=== PATIENT | female | born 1965 | race Caucasian/White ===

== ENCOUNTER 2017-08-28 08:58 | Day surgery (SDC) | payer OTHER ==
[2017-08-28] MEDS ORDERED: LR 1,000 ML IV ONE (09:03)
[2017-08-28] MEDS ORDERED: LIDOCAINE 1% 2 ML INJ ID PRN (09:03)
[2017-08-28 09:46] VITALS: PULSE 81
[2017-08-28] MEDS ORDERED: fentaNYL 100 MCG/2 ML INJ IVP PRN (11:09)
[2017-08-28] MEDS ORDERED: NALOXONE HCL 0.4 MG/ML INJ IVP PRN (11:09)
--- NOTE | 2017-08-28 11:09 | PDANEPAE ---
ANE Past Medical History - Cardiovascular History Hx Hypertension: No Hx Arrhythmias: No Hx Chest Pain: No Hx Coronary Artery / Peripheral Vascular Disease: No Hx CHF / Valvular Disease: No Hx Palpitations: No - Pulmonary History Hx COPD: No Hx Asthma/Reactive Airway Disease: No Hx Recent Upper Respiratory Infection: No Hx Oxygen in Use at Home: No Hx Sleep Apnea: No Sleep Apnea Screening Result - Last Documented: Negative - Neurologic History Hx Cerebrovascular Accident: No Hx Seizures: No Hx Dementia: No - Endocrine History Hx Diabetes: No - Renal History Hx Renal Disorders: No - Liver History Hx Hepatic Disorders: No - Neurological & Psychiatric Hx Hx Neurological and Psychiatric Disorders: No - Cancer History Hx Cancer: Yes Cancer History Comment: COLORECTAL DX 08/2016 DX - Congenital Disorder History Hx Congenital Disorders: No - GI History Hx Gastrointestinal Disorders: No - Other Health History Other Health History: NEG - Chronic Pain History Chronic Pain: No - Surgical History Prior Surgeries: COLONOSCOPY. C SECTION ANE Review of Systems Review of Systems: - Exercise capacity METS (RN): 5 METS ANE Patient History - Allergies Allergies/Adverse Reactions: sulfamethoxazole [From Bactrim] Allergy (Verified 08/27/17 17:42) Rash trimethoprim [From Bactrim] Allergy (Verified 08/27/17 17:42) Rash - Home Medications Home Medications: Trazodone HCl 08/27/17 [Last Taken 08/27/17] Viibryd 08/27/17 [Last Taken 08/27/17] Vyvanse 08/27/17 [Last Taken 08/28/17 07:15] - NPO status NPO Since - Liquids (Date): 08/27/17 NPO Since - Liquids (Time): 10:15 NPO Since - Solids (Date): 08/27/17 NPO Since - Solids (Time): 20:30 - Smoking Hx Smoking Status: Former smoker ANE Labs/Vital Signs - Vital Signs Blood Pressure: 121/82 Heart Rate: 81 Respiratory Rate: 16 O2 Sat (%): 98 Height: 177.8 cm Weight: 60.328 kg ANE Physical Exam - Airway Neck exam: FROM Mallampati Score: Class 1 Mouth exam: normal dental/mouth exam - Pulmonary Pulmonary: no respiratory distress, no rales or rhonchi - Cardiovascular Cardiovascular: regular rate and rhythym, no murmur, rub, or gallop - ASA Status ASA Status: II ANE Anesthesia Plan Anesthesia Plan: GA with mask
[2017-08-28] MEDS ORDERED: PROPOFOL/EMULSION 500 MG/50 ML BOTTLE IV ONE (11:10)
[2017-08-28] MEDS ORDERED: LIDOCAINE 2% 5 ML SDV ONE (11:10)
--- NOTE | 2017-08-28 11:14 | PDGENHP ---
History & Physical Chief Complaint: rectal cancer History of Present Illness: 52 year old female for rectal cancer Pertinent Past, Social, Family History: PMhx: rectal cancer. FamHx: No CRC Relevant Physical Exam: HEENT: Anicteric. CV: RRR +s1s2. Lungs: CTAB. Abd: soft, nt, + bs Cardiorespiratory Assessment: ASA 2
--- NOTE | 2017-08-28 11:52 | POSTANESTH ---
Post Anesthetic Evaluation Cardiovascular Status: Normal, Stable Respiratory Status: Normal, Stable Level of Consciousness/Mental Status: Can Participate in Eval Pain Control: Adequate, Prn Tx Ordered Nausea/Vomiting Control: Adequate, Prn Tx Ordered Complications Possibly Related to Anesthesia: None Noted
--- NOTE | 2017-08-28 12:04 | GIREPORT ---
[facility] - Endoscopy Department Patient Name: Mary Russo Procedure Date: 08/28/2017 11:04 AM Patient Type: Outpatient Attending MD/ ER Physician: Blue Solano MD Procedure: Lower EUS Indications: Pre-treatment staging for anorectal carcinoma Patient Profile: 52 year old female presents for staging of a rectal cancer. Providers: Blue Solano MD Medicines: Monitored Anesthesia Care Complications: No immediate complications. Estimated blood loss: Minimal. Description of Procedure: After obtaining informed consent, the endoscope was passed under direct vision. Throughout the procedure, the patient's blood pressure, pulse, and oxygen saturations were monitored continuously. The Endosonoscope was introduced through the anus and advanced to the sigmoid colon. The Colonoscope was introduced through the anus and advanced to the sigmoid colon for ultrasound. The lower EUS was accomplished without difficulty . The patient tolerated the procedure well. The quality of the bowel preparat ion was good. Findings: The perianal and digital rectal examinations were normal. Pertinent negatives include no palpable rectal lesions. Endoscopic Finding : A fungating, infiltrative and ulcerated non-obstructing medium-sized ma ss was found in the proximal rectum. The mass measured three cm in length. Endosonographic Finding : A hypoechoic mass was found in the rectum. The mass was encountered at 11.0 cm (from the anal verge). The endosonographic borders were poorly-defin ed. The mass measured 10 mm (in maximum thickness). A round, hypoechoic les ion was seen at the level of the tumor. It measured about 1cm. Not amenable to FNA since at the level of the tumor. Suspected to be involved. Estimated Blood Loss: Estimated blood loss was minimal. Post Op Diagnosis: - Malignant tumor in the proximal rectum. - Rectal mass was visualized endosonographically. This was staged uT3 u N1. - No specimens collected. Recommendation: - Discharge patient to home (with escort). - Advance diet as tolerated. - Continue present medications. - Thank you for allowing me to particpate in the care of your patient. Attending Participation: I personally performed the entire procedure. Blue Solano MD Blue Solano MD 08/28/2017 12:04:35 PM This report has been signed electronicallyBlue Solano MD Number of Addenda: 0 Note Initiated On: 08/28/2017 11:04 AM Total Procedure Duration Time 0 hours 16 minutes 24 seconds [email or web address]
[2017-08-28 12:15] VITALS: TEMP 97.7
[2017-08-28 12:28] VITALS: RESP 16
[2017-08-28 12:45] VITALS: BP 135/87; O2SAT 97
== END 2017-08-28 12:45 | disposition home or self-care (01) ==
LOC: FSGY 08:58
PROVIDERS: ATTEND Internal Medicine Gastroenterology
PROC: 0DJD8ZZ Inspection of Lower Intestinal Tract, Via Natural or Artificial Opening Endoscopic (ICD-10-PCS; principal; 2017-08-28 11:00)
PROC: BW41ZZZ Ultrasonography of Abdomen and Pelvis (ICD-10-PCS; principal; 2017-08-28 11:00)
DX: C20 Malignant neoplasm of rectum (principal)
CPT/HCPCS: J2704

== ENCOUNTER → 2017-09-10 | Outpatient (CLI) | payer OTHER ==
[~2017-09-10] MED LIST: GADOBUTROL 10 ML VIAL IVP ONE
== END ==
LOC: FIMAGING 06:53
PROVIDERS: ATTEND Internal Medicine Hematology & Oncology
DX: Z01.818 Encounter for other preprocedural examination (principal); G93.0 Cerebral cysts
CPT/HCPCS: A9585

== ENCOUNTER → 2017-12-10 | Outpatient (CLI) | payer OTHER | LOC: FIMAGING 13:24 | PROVIDERS: ATTEND Obstetrics & Gynecology | DX: Z12.31 Encounter for screening mammogram for malignant neoplasm of breast (principal); Z80.3 Family history of malignant neoplasm of breast ==

== ENCOUNTER → 2017-12-21 | Outpatient (CLI) | payer OTHER | LOC: FIMAGING 12:57 | PROVIDERS: ATTEND Internal Medicine Hematology & Oncology | DX: Z13.820 Encounter for screening for osteoporosis (principal); M85.89 Other specified disorders of bone density and structure, multiple sites; Z78.0 Asymptomatic menopausal state ==

== ENCOUNTER 2018-05-15 18:35 | Inpatient (IN) | payer OTHER ==
--- NOTE | 2018-05-15 18:57 | EDPHY ---
H & P Stated Complaint: Pt having diffuse abdo pn x 4hrs, denies N/V/D. Hx colon CA Time Seen by Provider: 05/15/18 18:57 HPI/ROS: HPI CHIEF COMPLAINT: Abdominal pain, abdominal bloating, nausea HISTORY OF PRESENT ILLNESS: This is a very pleasant 53-year-old female, she has a history of colorectal cancer and had surgery for this at [facility] in December, she is on oral chemotherapy by Dr. Reeves, however currently is not on it. She presents emergency room with abdominal bloating, nausea and abdominal discomfort. Discomfort was getting worse. This started around 2:00 p.m.. Rather persistent. No vomiting. She had a bowel movement earlier this morning without difficulty. No fever. Denies chest pain or shortness of breath. Pain is worse. Lower abdomen. Decided come the emergency room for this. Past Medical History: Colorectal cancer Past Surgical History: Colorectal cancer status post surgery Social History: He denies drugs alcohol tobacco. Family History: Noncontributory. ROS REVIEW OF SYSTEMS: 10 Systems were reviewed and negative with the exception of the elements mentioned in the history of present illness. Exam Constitutional triage nursing summary reviewed, vital signs reviewed, awake/ alert. Eyes normal conjunctivae and sclera, EOMI, PERRLA. HENT normal inspection, atraumatic, moist mucus membranes, no epistaxis, neck supple/ no meningismus, no raccoon eyes. Respiratory clear to auscultation bilaterally, normal breath sounds, no respiratory distress, no wheezing. Cardiovascular rate normal, regular rhythm, no murmur, no edema, distal pulses normal. Gastrointestinal soft, non-tender, no rebound, no guarding, normal bowel sounds, no distension, no pulsatile mass. Genitourinary no CVA tenderness. Musculoskeletal no midline vertebral tenderness, full range of motion, no calf swelling, no tenderness of extremities, no meningismus, good pulses, neurovascularly intact. Skin pink, warm, & dry, no rash, skin atraumatic. Neurologic awake, alert and oriented x 3, AAOx3, moves all 4 extremities equally, motor intact, sensory intact, CN II-XII intact, normal cerebellar, normal vision, normal speech. Psychiatric normal mood/affect. Heme/Lymph/Immune no lymphadenopathy. Differential Diagnosis: Includes but is not limited to in a particular order: Bowel obstruction, ileus, hernia Medical Decision Making: Plan for this patient IV establishment IV fluid bolus , check basic blood work, CT scan abdomen pelvis with IV contrast rule out bowel obstruction. Re-evaluation: ED x-ray KUB: No evidence of free fluid or free air. Patient CT scan abdomen pelvis with IV contrast shows small bowel obstruction. Her stomach is dilated with fluid filled stomach. And dilated fluid-filled small bowel loops with a transition point in the lower abdomen pelvis region. This was called to me by Dr. Sadiq Yao. Plan for surgical consultation. Additionally plan for NG tube. 2100: Consulted Dr. Lei. NG tube placed. General surgery consult. Patient admitted to Dr. Lei for SBO. seening and evaluating patient. Source: Patient - Personal History Current Tetanus/Diphtheria Vaccine: Unsure - Medical/Surgical History Hx Asthma: No Hx Chronic Respiratory Disease: No Hx Diabetes: No Hx Cardiac Disease: No Hx Renal Disease: No Hx Cirrhosis: No Hx Alcoholism: No Hx HIV/AIDS: No Hx Splenectomy or Spleen Trauma: No Other PMH: Colon CA Sx, - Social History Smoking Status: Former smoker Constitutional: Initial Vital Signs Heart Rate 72 05/15/18 18:47 Respiratory Rate 16 05/15/18 18:47 Blood Pressure 112/91 H 05/15/18 18:47 O2 Sat (%) 100 05/15/18 18:47 O2 Delivery Mode Nasal Cannula O2 (L/minute) 2 Allergies/Adverse Reactions: sulfamethoxazole [From Bactrim] Allergy (Verified 05/15/18 18:47) Rash trimethoprim [From Bactrim] Allergy (Verified 05/15/18 18:47) Rash Home Medications: Medication Instructions Recorded Lisdexamfetamine Dimesylate 20 mg PO DAILY 08/27/17 [Vyvanse] Vilazodone HCl [Viibryd] 20 mg PO DAILY 08/27/17 traZODone [traZODONE 50MG (*)] 75 mg PO HS 08/27/17 Estradiol [Vivelle-Dot 0.1MG (*)] 0.1 mg TD TUFR@0800 05/15/18 Herbals/Supplements -Info Only 1 ea PO DAILY 05/15/18 Progesterone, Micronized 200 mg PO HS 05/15/18 [Progesterone] QUEtiapine FUMARATE [Seroquel 50 25 mg PO HS 05/15/18 mg (*)] Medical Decision Making - Data Points Laboratory Results: Laboratory Results 05/15/18 19:00 05/15/18 19:00 Medications Given: Enoxaparin Sodium (Lovenox) 40 mg SC DAILY [facility] Stop: 11/12/18 08:59 Last Admin: 05/16/18 10:15 Dose: 40 mg Hydromorphone HCl (Dilaudid) 0.2 - 0.4 mg IVP Q1HR PRN PRN Reason: Pain, Breakthrough Stop: 05/25/18 23:09 Last Admin: 05/16/18 02:53 Dose: 0.4 mg Potassium Chloride 10 meq/ (Dextrose/Sodium Chloride) 1,000 mls @ 100 mls/hr IV CONT [facility] Stop: 11/12/18 13:59 Last Admin: 05/16/18 15:26 Dose: 1,000 mls Ketorolac Tromethamine (Toradol) 15 mg IVP Q6H [facility] Stop: 05/21/18 04:59 Last Admin: 05/16/18 18:51 Dose: Not Given Lorazepam (Ativan Injection) 0.5 - 1 mg IVP Q4HRS PRN PRN Reason: Anxiety, Unable to Take PO Stop: 11/12/18 06:37 Last Admin: 05/16/18 10:28 Dose: 0.5 mg Ondansetron HCl (Zofran) 4 mg IVP Q4HRS PRN PRN Reason: *Nausea &/or Vomiting Stop: 05/16/18 23:09 Last Admin: 05/16/18 02:54 Dose: 4 mg Pantoprazole Sodium (Protonix) 40 mg IVP DAILY [facility] Stop: 11/11/18 23:29 Last Admin: 05/16/18 10:18 Dose: 40 mg Discontinued Medications Diazepam (Valium) 5 mg IVP ONCE ONE Stop: 05/16/18 00:31 Last Admin: 05/16/18 00:29 Dose: 5 mg Hydromorphone HCl (Dilaudid) 0.5 mg IVP EDNOW ONE Stop: 05/15/18 19:05 Last Admin: 05/15/18 19:14 Dose: 0.5 mg Hydromorphone HCl (Dilaudid) 0.5 mg IVP EDNOW ONE Stop: 05/15/18 20:26 Last Admin: 05/15/18 20:38 Dose: 0.5 mg Sodium Chloride (Ns) 1,000 mls @ 0 mls/hr IV EDNOW ONE; Wide Open PRN Reason: Protocol Stop: 05/15/18 19:05 Last Admin: 05/15/18 19:13 Dose: 1,000 mls Sodium Chloride (Ns) 1,000 mls @ 0 mls/hr IV ONCE ONE PRN Reason: Wide Open Stop: 05/15/18 23:08 Last Admin: 05/15/18 23:10 Dose: 1,000 mls Sodium Chloride (Ns) 1,000 mls @ 100 mls/hr IV CONT [facility] Stop: 11/11/18 23:29 Last Admin: 05/16/18 10:35 Dose: 1,000 mls Ketorolac Tromethamine (Toradol) 15 mg IVP EDNOW ONE Stop: 05/15/18 23:01 Last Admin: 05/15/18 23:03 Dose: 15 mg Ondansetron HCl (Zofran) 4 mg IVP EDNOW ONE Stop: 05/15/18 19:05 Last Admin: 05/15/18 19:14 Dose: 4 mg Promethazine HCl (Phenergan) 6.25 mg IVP ONCE ONE Stop: 05/15/18 21:44 Last Admin: 05/15/18 21:45 Dose: 6.25 mg Departure - Departure Disposition: [facility] Inpatient Acute Clinical Impression: SBO (small bowel obstruction) Condition: Fair
[2018-05-15] MEDS ORDERED: ONDANSETRON 4 MG/2 ML VIAL IVP ONE (19:04)
[2018-05-15] MEDS ORDERED: HYDROmorphONE/DILAUDID 2 MG/ML INJ IVP ONE ×2 (19:04→20:25)
[2018-05-15] MEDS ORDERED: NS 1,000 ML IV ONE ×2 (19:04→23:07)
[2018-05-15] MEDS ORDERED: IOPAMIDOL (ISOVUE-300) 100 ML BTL ONE (19:13)
[2018-05-15 19:14] LABS: PLATELET COUNT 386 10^3/uL (150-400)
[2018-05-15 19:23] LABS: INR 0.97 (0.83-1.16); PROTIME(PATIENT) 13.1 SEC (12.0-15.0)
[2018-05-15] MEDS ORDERED: BENZOCAINE UNIT DOSE SPRAY HURRICAINE MM ONE (21:10)
[2018-05-15] MEDS ORDERED: PROMETHAZINE HCL 25 MG/ML INJ IVP ONE (21:43)
[2018-05-15] MEDS ORDERED: PROMETHAZINE HCL 25 MG/ML INJ ONE (21:44)
[2018-05-15] MEDS ORDERED: ASPIRIN 81 MG CHEWABLE TAB PO ONE (22:06)
[2018-05-15] MEDS ORDERED: NITROGLYCERIN 0.4 MG BTL SL ONE (22:06)
[2018-05-15] MEDS ORDERED: KETOROLAC 15 MG/1 ML SDV IVP ONE (23:00)
[2018-05-15] MEDS ORDERED: KETOROLAC 30 MG/1 ML SDV ONE (23:01)
[2018-05-15] MEDS ORDERED: ONDANSETRON 4 MG/2 ML VIAL IVP PRN (23:10)
[2018-05-15] MEDS ORDERED: HYDROmorphONE/DILAUDID 1 MG/ML INJ IVP PRN (23:10)
[2018-05-15] MEDS ORDERED: NS 1,000 ML IV SCH (23:30)
[2018-05-16] MEDS: PANTOPRAZOLE SODIUM 40 MG VIAL IVP SCH ×2 (00:03→10:18)
--- NOTE | 2018-05-16 00:29 | GHP ---
DATE OF ADMISSION: 05/15/2018 ADMITTING DIAGNOSES: 1. Small bowel obstruction. 2. Known internal hernia. 3. Stage III colon cancer. 4. Hypercalcemia. 5. Depression. 6. Attention-deficit disorder. 7. Insomnia. HISTORY: The patient is a 53-year-old white female who underwent her first colonoscopically evaluation last summer and was found to have a sigmoid colon cancer. She underwent a resection and was found to have 2 of 26 nodes positive. She has been treated with pelvic radiation therapy. She has had one infusion of oxaliplatin, and she does take Xeloda, and the last dose was this most recent Sunday. In January as part of her followup she had a CT of her abdomen, and that is when the internal hernia was identified. As she was having no symptoms, it was not addressed at that point. She did well until today at 1:30 this afternoon when she had a cupcake. Approximately 1 hour later she had generalized abdominal ache and nausea. She went on to vomit about 4 hours later. She did move her bowels this morning, and that was normal for her. Right now she complains of nausea, though her pain is somewhat better. She has had no flatus since onset, and she has complained of being distended. An NG tube is in place. A CT had been performed which showed a colon full of stool but a dilated proximal small bowel with what appears to be an internal hernia in the left lower quadrant near the pelvic brim, presumably from the mesenteric defect after the laparoscopic resection.. PAST MEDICAL HISTORY: She smoked from ages 20 to 24 with a fifth to a quarter pack per day. She does drink 1-1/2 glasses of wine per day. She is allergic to Bactrim, as manifested by a rash. Her current medications include, in addition to the Xeloda, her 0.1 mg Vivelle-Dot. She takes progesterone 200 mg p.o. at bedtime. She takes herbal supplement. She uses Seroquel 25 mg p.o. at bedtime for sleep as well as trazodone 75 mg p.o. at bedtime. She takes Vyvanse 20 mg daily, and Viibryd 20 mg p.o. q.a.m. Surgeries have been limited , in addition to the above surgery, to a and hemorrhoid surgery. There is no history of rheumatic fever, tuberculosis, hepatitis, or transfusions. REVIEW OF SYSTEMS: She has had depression for 18 years. She has had ADD for 7 years. She has had sleep issues for 17 years. 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 She is known to have a heart murmur. Her last mammogram was in October. Her last Pap smear was several years ago. No limitations on her activities. She had steroids in November for 1 week. PHYSICAL EXAMINATION: GENERAL: She is tired and uncomfortable. She is otherwise pleasant and cooperative. HEENT: There is a 16-E[place]ian nasogastric tube at 55 cm at the nares. It is adjusted and now functional. LYMPHATICS: There is no cervical, supraclavicular, axillary, or inguinal lymphadenopathy. NECK: There are no carotid bruits. Thyroid is not enlarged. BACK: Unremarkable. CHEST: Lungs are clear to auscultation. CARDIAC: S1, S2 were normal. I do not appreciate a murmur at this time. ABDOMEN: Minimally tender with cough and diffuse nature but mainly in the left lower quadrant. Bowel sounds are distinctly hypoactive. There are several well -healed laparoscopic incisions. To palpation, on a scale of 1-10 her pain level is: left upper quadrant is 1, left mid abdomen is 3, left lower quadrant is 5, epigastrium is 1, periumbilical area is 3 suprapubic area is 2, right upper quadrant is 1, right mid abdomen is 2, right lower quadrant is 2. Laboratories reveal a white count of 11.6, platelet count of 386, an INR of 0.97. Sodium 137, potassium 4.7, BUN 12, creatinine 0.6, AST is 49, and calcium is elevated at 10.6. A lactate is pending. I will try a nonoperative approach at this point. She will remain n.p.o. with NG in place. Followup abdominal x-ray studies will be performed in the morning. Consideration will be given to using enemas to clear the colon of its excessive stool volume. Statistically, there is a good chance this will resolve with NG suction. The patient is a DNR at this point. She understands the planned procedure. I will ask Medicine to consult because of her hypercalcemia, given her malignancy. In the meantime, she will be hydrated with normal saline. Her lactate will be followed. /[id number]/MODL MTDD
[2018-05-16] MEDS ORDERED: DIAZEPAM 5 MG/ML 1 ML SYR IVP ONE (00:30)
[2018-05-16] MEDS: KETOROLAC 15 MG/1 ML SDV IVP SCH ×3 (04:55→18:51)
[2018-05-16 05:49] LABS: PLATELET COUNT 294 10^3/uL (150-400)
[2018-05-16] MEDS ORDERED: LORazepam 2 MG/ML INJ IVP PRN (06:38)
--- NOTE | 2018-05-16 06:49 | PDMN ---
Medical Necessity Medical necessity: MCG: M210 intestinal obstruction- 2 days SBO req NG tube , NPO in pt with PMHx colon Ca with recent chemo/radiation, pt also with internal hernia- anticipate >2 MN ongoing monitoring, eval and tx.
--- NOTE | 2018-05-16 09:17 | GCON ---
HOSPITALIST CONSULTATION DATE OF CONSULTATION: 05/16/2018 REFERRING PHYSICIAN: Beck Lei MD PRIMARY ONCOLOGIST: Javi Reeves MD REASON FOR CONSULTATION: Hypercalcemia. CHIEF COMPLAINT: Nausea, vomiting, abdominal pain. 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 The patient had a bowel movement earlier in the morning. She denies any melena, hematochezia. She had intractable nausea and vomiting prior to arriving to the ED. She reports that it is bilious, no hematemesis. The patient reports she feels very dehydrated. She felt some subjective fevers, chills since onset of her symptoms. She denies any additional symptoms of respiratory, urinary, or derm. She is currently undergoing treatment with oxaliplatin and Xeloda. Her most recent dose was on Sunday. The patient reports that she is concerned that she potentially could be developing sepsis. She is also concerned about all of her electrolytes. She reports that she continues to feel quite dehydrated despite multiple liters of IV fluid. Her abdominal pain, nausea, and vomiting have significantly improved and nearly resolve, but she finds that she has developed some hiccups with the NG tube being in place. REVIEW OF SYSTEMS: Ten systems reviewed, otherwise negative except as noted above. ALLERGIES: To sulfa. Patient develops a rash. CURRENT HOME MEDICATIONS: Estradiol 0.1 mg transdermal Sunday and Sunday, progesterone 200 mg p.o. at h.s., trazodone 75 mg p.o. at h.s., Viibryd 20 mg p.o. daily, Seroquel 50 25 mg p.o. at h.s., and Vyvanse 20 mg p.o. daily. Chemotherapy as noted in HPI. PAST MEDICAL HISTORY: Significant for colorectal cancer status post resection with primary reanastomosis and radiation therapy along with chemotherapy as noted above. The patient has an internal hernia, ADD, depression, insomnia. PAST SURGICAL HISTORY: Significant for colorectal adenocarcinoma status post resection and treatment as noted above, cholecystectomy, , hemorrhoidectomy, left breast biopsy, and LEEP. FAMILY HISTORY: Father with prostate cancer. Mother with primary peritoneal cancer initially diagnosed with breast and uterine cancer. SOCIAL HISTORY: Patient is . She has 2 children. She quit smoking 28 years ago. She does not currently smoke. No use of illicit drugs. She drinks up to 1 glass of wine per day. CODE STATUS: DNR/DNI. PHYSICAL EXAM: VITAL SIGNS: Upon arrival to the emergency department, blood pressure 112/91, heart rate 72, respiratory rate 16, O2 sat 100% on room air. Vitals currently available: Blood pressure is 92/57, heart rate 84, respiratory rate 16, O2 saturation 97% with 2 L, with a temperature of 36.9. GENERAL: No acute distress. Pleasant, thin, acutely ill female, who is lying quietly in bed, appears fatigued. is at bedside. The patient does not appear toxic. She is awake, interactive, and pleasant. HEAD: Normocephalic, atraumatic. EYES: Extraocular muscles are grossly intact. Pupils are equal, round, with decreased reactivity to light bilaterally but symmetric. No scleral icterus or conjunctival injection. ENT: Mucous membranes appear slightly dry. No oropharyngeal erythema appreciated. Dentition intact. No nasal discharge. Patient does have an NG tube in her right naris. CV: Regular rate and rhythm. No murmurs, rubs, or gallops appreciated. RESPIRATORY : Unlabored breathing. Lungs are clear to auscultation bilaterally. No wheezes, rales, or rhonchi. ABDOMEN: Mildly distended, soft. Hypoactive bowel sounds. Well-healed trocar surgical scars. No significant tenderness to palpation. : No suprapubic tenderness to palpation. No Boyd catheter in place. EXTREMITIES: No cyanosis, clubbing, or edema appreciated. Patient with 2+ pedal pulses bilaterally and symmetric. NEURO: Grossly nonfocal. Moves all extremities. No facial drooping. Strength grossly intact. Patient able to sit up independently. PSYCH: Patient is quite anxious. She has multiple questions. She is not tearful. She is pleasant and cooperative otherwise. LABORATORY STUDIES: WBC is 11.66, H and H are 14.6 and 42.0, MCV 95.9, platelet count 386; neutrophil percent 90.6, no bands. Repeat a.m. labs show WBC 7.96, H and H of 12.5 and 36.9, MCV of 96.9, platelet count is 294; neutrophil percent 89.8, no bands. PT is 13.1, INR 0.97, PTT is 29.1. Lactic acid 1.4, repeat at 0.9 and 0.7. CMP in the ED: Sodium is 137, potassium 4.7, chloride 100, CO2 24, anion gap 13 , BUN 12, creatinine 0.7, GFR greater than 40, glucose 118, calcium 10.6, total bilirubin 1.2, conjugated bilirubin 0.7, ALT 17, AST 49, alkaline phosphatase 69 , total protein 9.0, albumin 5.4. Lipase is 139. Repeated labs show sodium is 141, potassium 4.0, chloride 109, CO2 25, anion gap 7, BUN 12, creatinine 0.6, GFR greater than 60, glucose 105, calcium 8.5, total bilirubin 0.5, ALT 22, AST 21, alkaline phosphatase 52, total protein 6.1, albumin 3.7. UA specific gravity of greater than 1.035, pH of 5.0, 1+ ketones, 1+ leukocyte esterase, WBCs 1-3, no bacteria noted, trace epithelial, trace mucus, otherwise negative. IMAGING: Abdominal x-ray showing nonspecific bowel gas pattern with distended loops of jejunum, otherwise nonopacified loops of small bowel which could be fluid-filled, right-sided constipation as well as fecal material within the rectum. CT abdomen and pelvis: Image report reviewed showing small bowel obstruction with a transitional change near the level of the proximal ileum. No obstructing mass discernible. A small amount of free fluid in the pelvis. Some ill-defined hypodensities in the liver, several which are too small to be characterize. Metastatic lesions cannot be excluded. Lung bases with some discoid subsegmental atelectasis versus linear scar of the inferomedial right middle lobe. Periportal edema likely secondary to IV hydration in the ED. Normal tapering common bile duct. The stomach is moderately fluid distended. Some radiodense dependent debris within the gastric fundus. Abnormal distention due to fluid-filled duodenum, jejunum, proximal ileum, and mid-to- distal ileum relatively decompressed. No obstructive lesion is identified. Normal appearance of appendix. Constipation present in the distal colon. Repeated x-ray status post NG tube showing placement in the fundus of the stomach. ASSESSMENT AND PLAN: A pleasant 53-year-old female with history of adenocarcinoma of the rectum, status post resection, radiation treatment, and undergoing chemotherapy, who presents with abdominal pain, nausea and vomiting, found to have small bowel obstruction. Hospitalist service consulted to assist with hypercalcemia and medical management. 1. Hypercalcemia. Has improved after intravenous fluid hydration. Suspect it was related to dehydration. The patient's previous laboratory studies and calcium levels were reviewed and have also been within normal limits. We will continue to monitor with a.m. labs. Remainder of her electrolytes also appear to be adequately replaced. We will add on magnesium. Her nausea and vomiting are currently controlled, and she has a nasogastric tube in place. 2. Small bowel obstruction. As per general surgery team. The patient with gastric decompression status post nasogastric tube placement. She is currently n.p.o. Additional imaging and plan as per primary team. 3. Nausea and vomiting. Currently controlled. Patient was Zofran available p.r.n., Protonix. 4. Abdominal pain. Patient with Dilaudid and Ativan p.r.n. 5. Constipation. Bowel regimen as per primary team. Patient reports there is consideration for enema this morning. 6. Anemia. Likely related to patient's chemotherapy and chronic medical issues. She was initially within normal limits, but likely hemoconcentrated in the setting of dehydration status post intravenous fluids. Plan to monitor. 7. Hypotension. The patient reports her blood pressures are normally low normal, 100s to 110 on outpatient setting. She has received multiple doses of narcotics and anxiolytics, which could also be contributing as well as her dehydration. She is continuing on intravenous fluids as per the primary team. We will plan to monitor as she is asymptomatic at this time. Patient without any evidence of sepsis with normalized white blood cells, normalize lactate. Patient is undergoing chemotherapy but without any additional signs of infectious source. At this time, we will plan to continue to monitor. Chronic medical issues: 1. Colorectal cancer, undergoing chemotherapy, radiation, status post resection. Patient is followed primarily by Dr. Reeves on an outpatient basis. We will consult the oncology service for any further additional recommendations and to assist with following. 2. Insomnia, depression, attention deficit disorder. The patient is currently unable to receive her usual home medications including trazodone, Viibryd, Seroquel, and Vyvanse. The patient with elevating anxiety. We will ensure she has some anxiolytics available, and she is amenable to this. Have ordered p.r.n. intravenous Ativan until such time patient can have her home medications resumed. 3. Hormone replacement therapy. The patient has her estradiol patch in place. Holding progesterone until such time patient can take p.o. 4. Fluid, electrolyte, nutrition. Intravenous fluids with normal saline running at 100 as per primary team. She does have some low blood pressures, but she has already received several liters of intravenous fluid and has voided approximately 700 since arrival to the floor. Her blood pressures will be monitored, also contributing could be anxiolytics and opiates. Electrolytes appear adequate. Adding magnesium. Will replace if needed. 5. Nutrition. N.p.o. as per primary. 6. Prophylaxis. Lovenox ordered per primary team. Sequential compression devices. 7. Code status is do not resuscitate/do not intubate. 8. Disposition. Patient admitted to inpatient status as per surgery service. Thank you for this consultation. We will continue to follow along with you. /[id number]/MODL MTDD
[2018-05-16] MEDS: ENOXAPARIN 40 MG/0.4 ML SYR SC SCH (10:15)
--- NOTE | 2018-05-16 11:53 | SOAPPROG ---
SOAP Progress Note Assessment/Plan: PAD#1 05/16/18 11:46 Assessment: SOB with known internal hernia after laparoscopic recto-sigmoid resection for stage III cancer. Feels better, VSS, still has air fluid levels on X-ray, no flatus yet, NG output not impressive, NG in good position. CA++ level down with hydration. Dr Parsons"s input appreciated. Plan: Continue supportive care, NG suction. Enemas to clear colon of retained stool. Subjective: I feel better but i have not had a bowel movement or passed gas. Objective: Vital Signs Temp Pulse Resp BP Pulse Ox 36.9 C 64 16 118/80 96 05/16/18 07:39 05/16/18 07:39 05/16/18 07:39 05/16/18 07:39 05/16/18 07:39 Laboratory Results 05/16/18 05:02 05/16/18 05:02 05/15/18 05/16/18 05/17/18 05:59 05:59 05:59 Intake Total 1423 Output Total 560 100 Balance 863 -100 PT 13.1 SEC (12.0-15.0) 05/15/18 19:00 INR 0.97 (0.83-1.16) 05/15/18 19:00 - Time Spent With Patient Time Spent With Patient: 25 - Pending Discharge Pending Discharge Within 24 Hours: No Pending Discharge Within 48 Hours: No Physical Exam - Physical Exam General Appearance: alert, mild distress Respiratory: lungs clear, normal breath sounds Cardiac/Chest: regular rate, rhythm Abdomen: non-tender, soft, other (Hypoactive bowel sounds, Pain much improved) Pelvic Exam: deferred Rectal: deferred Back: Normal inspection Skin: normal color, warm/dry Extremities: normal range of motion Neuro/Psych: no motor/sensory deficits, alert, normal mood/affect, oriented x 3 ICD10 Worksheet Patient Problems: Problems Problem Status Onset SBO (small bowel obstruction) Acute
[2018-05-16] MEDS ORDERED: DIAZEPAM 5 MG/ML 1 ML SYR IVP PRN (13:37)
[2018-05-16] MEDS ORDERED: POTASSIUM Cl (KCl) 10 MEQ in D5W 1/2 NS 1,000 ML IV SCH (14:00)
--- NOTE | 2018-05-16 14:39 | ASMTCMCOM ---
CM Note CM Note Notes: Chart reviewed for dischareg planning purposes. 53 year old femal with dx of stage III colorectal cancer s/p surgery admitted via ED for c/o abdominal distention and pain. She is diagnosed with SBO. NG placed. Being followed by surgery. CM to follow for needs. Plan: TBD Date Signed: 05/16/2018 02:39 PM Electronically Signed By:Micki Ward RN
--- NOTE | 2018-05-16 16:55 | HOSPPROG ---
Hospitalist Progress Note Assessment/Plan: #SBO: prior internal hernia after laparoscopic recto-sigmoid resection for stage III cancer. -lytes as goal. NG suction, enemas. Per Dr. Lei #Depression: pt very concerned about being off meds. Surgery does not want NG clamped. Will resume when taking PO #Stage 3 colorectal cancer: s/p resection, primary reanastomosis. Undergoing chemo, XRT per Dr. Reeves. Oncology consulted #Malignancy-related hypercalcemia: resolved with IVFs #ADD: home meds when taking PO #Hormone replacement therapy: patch in place #DVT pppx: Lovenox Disp: continue psych meds when tolerating orals Subjective: "concerned off psych meds" Objective: Vital Signs Temp Pulse Resp BP Pulse Ox 36.9 C 74 16 121/82 H 97 05/16/18 07:39 05/16/18 16:26 05/16/18 16:26 05/16/18 16:26 05/16/18 16:26 Laboratory Results 05/16/18 05:02 05/16/18 05:02 05/15/18 05/16/18 05/17/18 05:59 05:59 05:59 Intake Total 1423 Output Total 560 100 Balance 863 -100 PT 13.1 SEC (12.0-15.0) 05/15/18 19:00 INR 0.97 (0.83-1.16) 05/15/18 19:00 - Time Spent With Patient Time Spent with Patient: greater than 35 minutes Time Spent with Patient: Greater than 35 minutes spent on this patients care, greater than 50% of time spent counseling, educating, and coordinating care regarding the above mentioned plan. - Physical Exam Constitutional: cachectic Eyes: PERRL Ears, Nose, Mouth, Throat: other (NG tube in place) Cardiovascular: regular rate and rhythym Respiratory: no respiratory distress Gastrointestinal: distension Musculoskeletal: full muscle strength Neurologic: CN II-XII Intact Psychiatric: encephalopathic, flat affect ICD10 Worksheet Patient Problems: Problems Problem Status Onset SBO (small bowel obstruction) Acute
[2018-05-16] MEDS ORDERED: NS 500 ML IV ONE (20:36)
[2018-05-16] MEDS: traZODone 50 MG TAB PO SCH (21:17)
[2018-05-16] MEDS: QUEtiapine FUMARATE 50 MG TAB PO SCH (21:17)
[2018-05-16] MEDS: PROGESTERONE,MICR 100 MG CAP PO SCH (21:18)
[2018-05-17] MEDS: KETOROLAC 15 MG/1 ML SDV IVP SCH ×5 (01:20→23:46)
[2018-05-17] MEDS ORDERED: HYDROmorphONE/DILAUDID 2 MG/ML INJ IVP PRN (03:30)
[2018-05-17 06:08] LABS: PLATELET COUNT 233 10^3/uL (150-400)
[2018-05-17] MEDS ORDERED: ESTRADIOL VIVELLE 0.1 MG PATCH TD SCH (08:00)
[2018-05-17] MEDS: ENOXAPARIN 40 MG/0.4 ML SYR SC SCH (08:19)
[2018-05-17] MEDS: PANTOPRAZOLE SODIUM 40 MG VIAL IVP SCH (08:20)
[2018-05-17] MEDS: Vilazodone Hcl [Viibryd] 20 MG PO SCH ×2 (08:21→08:33)
[2018-05-17] MEDS: Lisdexamfetamine Dimesylate [Vyvanse] 20 MG PO SCH ×2 (08:21→10:44)
--- NOTE | 2018-05-17 11:30 | HOSPPROG ---
Hospitalist Progress Note Assessment/Plan: # SBO - suspect d/t internal hernia - slowly resolving, considering surgical intervention # colorectal cancer, stage 3 - chemo and XRT # depr - continue home meds # mild hyperCa - resolved with IVF Subjective: had BMs last night, none today; still passing gas Objective: Vital Signs Temp Pulse Resp BP Pulse Ox 37.2 C 74 16 114/66 96 05/17/18 07:48 05/17/18 07:48 05/17/18 07:48 05/17/18 07:48 05/17/18 07:48 Laboratory Results 05/17/18 05:46 05/17/18 05:46 05/16/18 05/17/18 05/18/18 05:59 05:59 05:59 Intake Total 1423 1816 Output Total 560 500 Balance 863 1316 PT 13.1 SEC (12.0-15.0) 05/15/18 19:00 INR 0.97 (0.83-1.16) 05/15/18 19:00 chart reviewed discussed with dr gan CT reviewed, OCTAVIANO personally reviewed - Physical Exam Constitutional: no apparent distress, appears nourished Cardiovascular: regular rate and rhythym, no murmur, rub, or gallop, systolic murmur Respiratory: no respiratory distress, no rales or rhonchi, clear to auscultation Gastrointestinal: normoactive bowel sounds, soft, non-tender abdomen, distension (mild) ICD10 Worksheet Patient Problems: Problems Problem Status Onset SBO (small bowel obstruction) Acute
--- NOTE | 2018-05-17 13:46 | ASMTCMCOM ---
CM Note CM Note Notes: Patient plan of care reviewed in am rounds. Her NG has been removed. Query whether she will elect to proceed with repair of obstructive hernis. Surgery to see, she is anxious to speak to oncology as to how this may affect her treatment. CM to follow for needs. Plan: TBD Date Signed: 05/17/2018 01:19 PM Electronically Signed By:Micki Ward RN
--- NOTE | 2018-05-17 19:51 | PDCONSULT ---
[employer] Admissions Representative Note: Patient is a 53-year-old female with a history of rectal cancer currently on adjuvant Xeloda who presents with a small bowel obstruction. Patient presents with a 1 day history of nausea and vomiting. This came on rather suddenly. She presented to the emergency room on 05/15/[address] of the abdomen and pelvis was performed which showed small bowel obstruction with transition change near the level of the proximal ileum with no obstructive mass discernible. There is also some ill-defined hypodensities in the liver which are felt to small to characterize. An NG tube was placed for decompression and she was admitted to surgery with internal medicine consulting. Last dose of Xeloda was 05/12/2018. Patient reports she is on a 2- week break. She takes 1000 mg twice daily after recent dose reduction for sensitivity of the hands and the feet. She reports feeling better with NG tube. She has been passing some flatus and had a BM this AM. She is looking forward to taking some PO. She denies any abdominal pain. No more nausea or vomiting. She is on her two weeks of Xeloda for the holiday. She was planning on going to [place] this AM with her but had to cancel. Her cancer history as described below from the note from [facility]. CANCER HISTORY: 1. Screening colonoscopy 2. 08/10/2017 colonoscopy (complete): Normal SERENA and perianal exams. Diverticulosis in the descending colon. 4 mm sessile polyp at the hepatic~ flexure; removed. Ulcerated non-obstructing medium-sized mass in the rectum, 12 cm from the anal verge. Non-circumferential. 3 cm in length. 3. Path: ~Polyp~ TA. Rectum adenocarcinoma, moderately differentiated. pMMR. 4. 08/17/2017 CEA: 0.75 5. 08/21/2017 PET/CT:~Primary rectal tumor is FDG-avid. A couple subcentimeter adjacent pericolonic LNs are not FDG avid. No evidence of~more distant metastatic disease. Nonspecific subtle ground glass attenuation opacity in the anterior right upper~lobe of the lung. 6. 08/28/2017 ERUS:~Malignant tumor in proximal rectum.~Endosonographically visualized; uT3 uN1.~ 7. Chemorads 09/06/2017 - 10/15/2017:~5040 cGy in 28 fractions with xeloda. 8. 11/27/2017: CAPOX x 1 cycle, complicated by tinnitus and poor tolerance. 901/15/2018: Laparoscopic LAR and colorectal anastomosis 10. Path: G2: Moderately differentiated adenocarcinoma. Tumor Extension: Tumor invades muscularis propria. ~Margins: All margins are uninvolved by invasive carcinoma, high-grade dysplasia, intramucosal adenocarcinoma, and adenoma. Distance of tumor from radial margin: 2.3 cm. Treatment Effect: Present - Residual cancer with evident tumor regression, but more than single cells or rare small groups of cancer cells (Partial response, Tumor regression score 2). ~Lymphovascular Invasion: Not identified. Perineural Invasion: Not identified. Tumor Deposits: Present = 1. Regional Lymph Nodes: Number of Lymph Nodes Involved: 2 out 23 LNs removed. Pathologic Stage Classification (pTNM, AJCC 8th Edition): [id number]. ~LUIS. 02/13/2018: CT reveals focal irregular enhancing nodule posterior to the uterus and adjacent to the rectum which may represent a lymph node, metastatic nodule, or subserosal polypoid leiomyoma. Correlation with outside imaging, if available, would be helpful. Right lower lobe 4 mm nodule which was not seen on the nonbreath-hold CT images from the PET-CT in August, probably new, suspicious for metastatic disease. Unchanged dominant hepatic segment 7 lesion. Another adjacent segment 7 lesion is indeterminate. If further characterization of liver hypodensities is desired, consider Eovist liver MRI. 02/20/2018: Adjuvant capecitabine initiated, plan for 3 months total. Review of Systems: A complete 12 point ROS is negative unless indicated in the HPI Past medical history: -Rectal cancer as above -Anxiety/Depression Past surgical history: -Low anterior resection with colorectal anastomosis as above -History of benign breast biopsy Social history: She smokes and smoked for roughly 4 years less than a pack per day. She quit in 1989. She has occasional glass of wine. No history of drugs Family History: Father had prostate cancer Mother had peritoneal cancer Physical examination General: No acute distress appearing nontoxic female HEENT: Pupils equal round reactive to light no scleral icterus or conjunctival pallor is appreciated oral mucosa is moist without any evidence of oral pharyngeal lesions NG tube in place to suction Neck: Supple Cardiovascular: Regular rate and rhythm without rubs thrills gallops or murmurs Chest: Clear to auscultation percussion bilateral posterior lungs Abdomen: Soft nontender nondistended no hepatosplenomegaly is appreciated Extremities: Warm well perfused 2+ dorsalis pedis and radial pulses bilaterally Neurologic: Cranial 2 through 12 are intact Medications and allergies her allergies are reviewed in the EMR Labs and imaging reports are evaluated as per the EMR Assessment and plan: Patient is a 53-year-old female with a history of stage III rectal cancer status post LAR with colorectal anastomosis currently on dose reduced adjuvant Xeloda who presents with small bowel obstruction. Problem #1small bowel obstruction Likely due to adhesions from surgery. No definitive malignancy is identified on initial CAT scan. She seems to be responding to conservative management. Problem #2 stage III rectal cancer Patient is currently on adjuvant Xeloda. She is on a dose for induction at 1000 mg twice daily. She is also taking the next 2 weeks off given the holiday. She has somewhat concerning imaging findings on a CT scan on January which showed a new pulmonary nodule as well as too small to characterize liver hypodensities and a small irregular enhancing nodule posterior to the uterus and adjacent to the rectum. She currently follows at the [facility] where these abnormalities can continue to be followed. Sid Del Rio
[2018-05-17] MEDS: PROGESTERONE,MICR 100 MG CAP PO SCH (21:24)
[2018-05-17] MEDS: traZODone 50 MG TAB PO SCH (21:24)
[2018-05-17] MEDS: QUEtiapine FUMARATE 50 MG TAB PO SCH (21:24)
[2018-05-17] MEDS ORDERED: BISMUTH SUBSALICYLATE 524 MG/30 ML UDL PO PRN (23:04)
--- NOTE | 2018-05-17 23:55 | SOAPPROG ---
SOAP Progress Note Assessment/Plan: Assessment: seen this am and again tonite sbo partially resolved with flatus and bm abd slightly distended, + bs, nontender 2-way still shows partial sbo Plan:possible laparotomy in am if not continuing to improve/ risks and options fully discussed 05/17/18 23:52 Objective: Vital Signs Temp Pulse Resp BP Pulse Ox 36.9 C 66 16 115/79 92 05/17/18 20:00 05/17/18 20:00 05/17/18 20:00 05/17/18 20:00 05/17/18 20:00 Laboratory Results 05/17/18 05:46 05/17/18 05:46 05/16/18 05/17/18 05/18/18 05:59 05:59 05:59 Intake Total 1423 1816 800 Output Total 560 500 Balance 863 1316 800 PT 13.1 SEC (12.0-15.0) 05/15/18 19:00 INR 0.97 (0.83-1.16) 05/15/18 19:00 ICD10 Worksheet Patient Problems: Problems Problem Status Onset SBO (small bowel obstruction) Acute
[2018-05-18] MEDS: KETOROLAC 15 MG/1 ML SDV IVP SCH (06:27)
[2018-05-18] MEDS ORDERED: cefOXitin SODIUM 2 GM in NS 100 ML IV ONE (07:30)
--- NOTE | 2018-05-18 07:55 | SOAPPROG ---
SOAP Progress Note Assessment/Plan: PAD#1 05/16/18 11:46 Assessment: SOB with known internal hernia after laparoscopic recto-sigmoid resection for stage III cancer. Feels better, VSS, still has air fluid levels on X-ray, no flatus yet, NG output not impressive, NG in good position. CA++ level down with hydration. Dr Parsons"s input appreciated. Plan: Continue supportive care, NG suction. Enemas to clear colon of retained stool. 05/18/18 07:51 PAD#3 Assessment: Doing well, had diarrhea yesterday as expected, continues to pass gas, notes minimal distention, had mashed potatoes and pizza last evening, hungry this am Plan: Hold on surgical intervention as she is responding to conservative therapy. If tolerates a regular diet for breakfast, will consider discharge mid day Subjective: I'm passing gas and liquid stool Objective: Vital Signs Temp Pulse Resp BP Pulse Ox 36.8 C 77 16 101/69 91 L 05/18/18 04:00 05/18/18 04:00 05/18/18 04:00 05/18/18 04:00 05/18/18 04:00 Laboratory Results 05/17/18 05:46 05/17/18 05:46 05/17/18 05/18/18 05/19/18 05:59 05:59 05:59 Intake Total 1816 1300 Output Total 500 Balance 1316 1300 PT 13.1 SEC (12.0-15.0) 05/15/18 19:00 INR 0.97 (0.83-1.16) 05/15/18 19:00 - Pending Discharge Pending Discharge Within 24 Hours: Yes Pending Discharge Date: 05/19/18 Pending Discharge Time: 11:00 Physical Exam - Physical Exam General Appearance: WD/WN, alert, no apparent distress Respiratory: chest non-tender, lungs clear, normal breath sounds Cardiac/Chest: regular rate, rhythm Abdomen: normal bowel sounds, non-tender, soft, other (minimal distention) Pelvic Exam: deferred Rectal: deferred Back: Normal inspection Skin: normal color Lymphatic: no adenopathy Extremities: normal range of motion, non-tender, normal inspection Neuro/Psych: no motor/sensory deficits, alert, normal mood/affect, oriented x 3 ICD10 Worksheet Patient Problems: Problems Problem Status Onset SBO (small bowel obstruction) Acute
[2018-05-18 09:26] VITALS: BP 119/76
[2018-05-18] MEDS: ENOXAPARIN 40 MG/0.4 ML SYR SC SCH (09:53)
[2018-05-18] MEDS: Vilazodone Hcl [Viibryd] 20 MG PO SCH (09:54)
[2018-05-18] MEDS: PANTOPRAZOLE SODIUM 40 MG VIAL IVP SCH (09:54)
--- NOTE | 2018-05-18 11:31 | ASMTLACE ---
LACE Length of stay for Answers: 4-6 days current admission Acuity / Level of Answers: Yes Care: Did the patient have an inpatient admission? Comorbidities - select Answers: Any tumor (including all that apply lymphoma or leukemia) # of Emergency department Answers: 1-2 visits in the last 6 months Social determinants Answers: Mental health diagnosis (anxiety, depression, pers onality disorders, etc.) Score: 13 Date Signed: 05/18/2018 11:30 AM Electronically Signed By:JUDY Patterson
--- NOTE | 2018-05-18 11:36 | ASMTCMCOM ---
CM Note CM Note Notes: Pt decided to hold surgery. Pt medically stable for d/c, no CM d/c needs identified. Pt was provided letter for missed travel by ROSMERY Ward. Date Signed: 05/18/2018 11:35 AM Electronically Signed By:JUDY Patterson
--- NOTE | 2018-05-18 11:54 | GDS ---
DISCHARGE DISPOSITION: Home. CONDITION: Good. DIETARY RESTRICTIONS: There are no restrictions on her diet, but I do suggest she avoid constipating foods. There are no texture requirements on her diet either. MEDICATIONS: She will continue her outpatient medications which include: Vyvanse 20 mg daily, Viibry d 20 mg daily, trazodone 75 mg p.o. q.h.s., Seroquel 25 mg p.o. q.h.s. She may continue her herbal s upplements. She will continue her Vivelle-Dot 0.1 mg transdermal and her progesterone 200 mg p.o. q. h.s. ACTIVITY: No restrictions. As mentioned above, she is to avoid constipating foods such as bananas, rice, applesauce, and cheese. She will follow up with Dr. Candelaria Eldridge, her primary care provider. DISCHARGE DIAGNOSIS: Small bowel obstruction, resolved. /[id number]/MODL
--- NOTE | 2018-05-18 12:02 | HOSPPROG ---
Hospitalist Progress Note Assessment/Plan: # SBO - suspect d/t internal hernia - resolved; will hold on surgery at this point; she will f/u her surgeons at [facility] regarding possible surgery # colorectal cancer, stage 3 - chemo and XRT # depr - continue home meds # mild hyperCa - resolved with IVF Subjective: passing stool today; ate breakfast without worsening pain or nausea Objective: Vital Signs Temp Pulse Resp BP Pulse Ox 36.6 C 70 16 119/76 97 05/18/18 08:00 05/18/18 08:00 05/18/18 08:00 05/18/18 08:00 05/18/18 08:00 Laboratory Results 05/17/18 05:46 05/17/18 05:46 05/17/18 05/18/18 05/19/18 05:59 05:59 05:59 Intake Total 1816 1300 Output Total 500 Balance 1316 1300 PT 13.1 SEC (12.0-15.0) 05/15/18 19:00 INR 0.97 (0.83-1.16) 05/15/18 19:00 - Physical Exam Constitutional: no apparent distress, appears nourished Eyes: anicteric sclera Ears, Nose, Mouth, Throat: hearing normal Cardiovascular: No edema Respiratory: no respiratory distress Gastrointestinal: distension (mild) Genitourinary: No romero in urethra Skin: normal color Musculoskeletal: no muscle tenderness Neurologic: AAOx3 Psychiatric: not anxious ICD10 Worksheet Patient Problems: Problems Problem Status Onset SBO (small bowel obstruction) Acute
== END 2018-05-18 13:03 | disposition home or self-care (01) | DRG 394 ==
LOC: SUPCPDRO 18:35 → OBSVTOIN 21:23 → F1N 23:20
PROVIDERS: ADMIT Surgery; ATTEND Surgery
DX: K46.0 Unspecified abdominal hernia with obstruction, without gangrene (principal); E83.52 Hypercalcemia; E86.0 Dehydration; C18.7 Malignant neoplasm of sigmoid colon; F32.9 Major depressive disorder, single episode, unspecified; F98.8 Other specified behavioral and emotional disorders with onset usually occurring in childhood and adolescence; H93.19 Tinnitus, unspecified ear; G47.00 Insomnia, unspecified; D64.9 Anemia, unspecified; Z79.890 Hormone replacement therapy; Z66 Do not resuscitate
CPT/HCPCS: 96374; J0694; J1170; J1650; J1885; J2060; J2405; J2550; J3360; J3480; Q9967

== ENCOUNTER 2018-07-14 01:22 | Inpatient (IN) | payer OTHER ==
[2018-07-14] MEDS ORDERED: ONDANSETRON 4 MG/2 ML VIAL ONE (01:33)
[2018-07-14] MEDS ORDERED: NS 1,000 ML IV ONE ×2 (01:46→03:17)
[2018-07-14] MEDS ORDERED: ONDANSETRON 4 MG/2 ML VIAL IVP ONE ×2 (01:46→07:26)
[2018-07-14] MEDS ORDERED: HYDROmorphONE/DILAUDID 2 MG/ML INJ IVP ONE ×3 (02:00→07:26)
[2018-07-14 02:32] LABS: PLATELET COUNT 401 10^3/uL (150-400)
--- NOTE | 2018-07-14 02:41 | EDPHY ---
H & P Stated Complaint: ABD PAIN X5 HRS, VOMITING, SBO 2MO AGO, FEELS SIMILIAR Time Seen by Provider: 07/14/18 01:59 HPI/ROS: HPI The patient presents with abdominal pain with nausea and vomiting which began tonight. The patient ate dinner at 6:30 a.m., chicken soup and toast. About 5 hr ago she developed diffuse abdominal pain which was crampy in came on slowly, initially thought to be gas. Afterward she developed about 6 episodes of nonbloody nonbilious emesis. Her last bowel movement was at 4:00 p.m.. She has a history of a small-bowel obstruction in May of last year which improved with conservative measures. She has a history of sigmoid colon cancer status post resection and chemotherapy. She has not had any fevers or chills.. REVIEW OF SYSTEMS 10 systems were reviewed and negative with the exception of the elements mentioned in the history of present illness. 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, status post resection, history of small-bowel obstruction Soc Hx: Here with her PHYSICAL General Appearance: Alert, uncomfortable appearing Eyes: Pupils equal and round no pallor or injection ENT, Mouth: Mucous membranes moist Respiratory: There are no retractions, lungs are clear to auscultation Cardiovascular: Regular rate and rhythm Gastrointestinal: Abdomen is soft, bowel sounds are diminished, mild tenderness in all quadrants Neurological: A&O, moves all extremities Skin: Warm and dry, no rashes Musculoskeletal: Neck is supple non tender Extremities: symmetrical, full range of motion Psychiatric: Patient is oriented X 3, there is no agitation Source: Patient, Old records Exam Limitations: No limitations - Personal History LMP (Females 10-55): Post Menopausal Current Tetanus/Diphtheria Vaccine: Yes - Medical/Surgical History Hx Asthma: No Hx Chronic Respiratory Disease: No Hx Diabetes: No Hx Cardiac Disease: No Hx Renal Disease: No Hx Cirrhosis: No Hx Alcoholism: No Hx HIV/AIDS: No Hx Splenectomy or Spleen Trauma: No Other PMH: Colon CA Sx, SBO, DEPRESSION, ADD - Social History Smoking Status: Former smoker Constitutional: Initial Vital Signs Temperature (C) 36.4 C 07/14/18 01:25 Heart Rate 75 07/14/18 01:25 Respiratory Rate 24 H 07/14/18 01:25 Blood Pressure 101/79 07/14/18 01:25 O2 Sat (%) 100 07/14/18 01:25 O2 Delivery Mode Nasal Cannula O2 (L/minute) 3 Allergies/Adverse Reactions: sulfamethoxazole [From Bactrim] Allergy (Verified 07/14/18 07:24) Rash trimethoprim [From Bactrim] Allergy (Verified 07/14/18 07:24) Rash Home Medications: Medication Instructions Recorded Lisdexamfetamine Dimesylate 20 mg PO DAILY 08/27/17 [Vyvanse] traZODone [traZODONE 50MG (*)] 75 mg PO HS 08/27/17 Estradiol [Vivelle-Dot 0.1MG (*)] 0.1 mg TD TUFR@0800 05/15/18 Progesterone, Micronized 200 mg PO HS 05/15/18 [Progesterone] QUEtiapine FUMARATE [Seroquel 50 25 mg PO HS 05/15/18 mg (*)] Vilazodone HCl [Viibryd] 40 mg PO 07/14/18 Medical Decision Making - Diagnostics Imaging Results: KUB two views demonstrates multiple air-fluid levels with constipation present, interpreted by me, radiology interpretation is pending. Imaging: I viewed and interpreted images myself Differential Diagnosis: 53-year-old female with sigmoid colon cancer who is had a resection, history of an SBO 2 months ago, presents from home with several hours of diffuse abdominal pain, nausea and vomiting. Here, vital signs are normal, she is uncomfortable appearing. Abdominal exam demonstrates hypoactive bowel sounds and tenderness in all quadrants. In the emergency department, patient was started on IV fluids given medication for pain. Labs were checked and were relatively unremarkable. KUB demonstrated multiple air-fluid levels as well as signs of constipation. I consulted with Dr. Lei from General surgery and he came to see the patient. He recommends enemas here in the emergency department. We did perform enema with good result. Her pain returned. She will require admission to the hospital. I have discussed the case again with Dr. Lei, ordered KUB initial pain medication. - Data Points Laboratory Results: Laboratory Results 07/14/18 01:30 07/14/18 01:30 07/14/18 07/14/18 07/14/18 01:30 01:30 01:30 WBC 9.12 10^3/uL 10^3/uL (3.80-9.50) RBC 4.64 10^6/uL 10^6/uL (4.18-5.33) Hgb 15.1 g/dL g/dL (12.6-16.3) Hct 43.8 % % (38.0-47.0) MCV 94.4 fL fL (81.5-99.8) MCH 32.5 pg pg (27.9-34.1) MCHC 34.5 g/dL g/dL (32.4-36.7) RDW 13.0 % % (11.5-15.2) Plt Count 401 10^3/uL H 10^3/uL (150-400) MPV 9.3 fL fL (8.7-11.7) Neut % (Auto) 88.8 % H % (39.3-74.2) Lymph % (Auto) 6.6 % L % (15.0-45.0) Early % (Auto) 4.1 % L % (4.5-13.0) Eos % (Auto) 0.2 % L % (0.6-7.6) Baso % (Auto) 0.1 % L % (0.3-1.7) Nucleat RBC Rel Count 0.0 % % (0.0-0.2) Absolute Neuts (auto) 8.10 10^3/uL H 10^3/uL (1.70-6.50) Absolute Lymphs (auto) 0.60 10^3/uL L 10^3/uL (1.00-3.00) Absolute Monos (auto) 0.37 10^3/uL 10^3/uL (0.30-0.80) Absolute Eos (auto) 0.02 10^3/uL L 10^3/uL (0.03-0.40) Absolute Basos (auto) 0.01 10^3/uL L 10^3/uL (0.02-0.10) Absolute Nucleated RBC 0.00 10^3/uL 10^3/uL (0-0.01) Immature Gran % 0.2 % % (0.0-1.1) Immature Gran # 0.02 10^3/uL 10^3/uL (0.00-0.10) Sodium 139 mEq/L mEq/L (135-145) Potassium 3.8 mEq/L mEq/L (3.5-5.2) Chloride 101 mEq/L mEq/L (97-110) Carbon Dioxide 27 mEq/l mEq/l (22-31) Anion Gap 11 mEq/L mEq/L (6-14) BUN 10 mg/dL mg/dL (7-23) Creatinine 0.7 mg/dL mg/dL (0.6-1.0) Estimated GFR > 60 Glucose 125 mg/dL H mg/dL (70-100) Calcium 10.4 mg/dL mg/dL (8.5-10.4) TSH 3.280 uIU/mL uIU/mL (0.465-4.680) Medications Given: Discontinued Medications Hydromorphone HCl (Dilaudid) 1 mg IVP EDNOW ONE Stop: 07/14/18 02:01 Last Admin: 07/14/18 02:05 Dose: 1 mg Hydromorphone HCl (Dilaudid) 0.5 mg IVP EDNOW ONE Stop: 07/14/18 04:52 Last Admin: 07/14/18 04:52 Dose: 0.5 mg Sodium Chloride (Ns) 1,000 mls @ 0 mls/hr IV EDNOW ONE; Wide Open PRN Reason: Protocol Stop: 07/14/18 01:47 Last Admin: 07/14/18 01:46 Dose: 1,000 mls Sodium Chloride (Ns) 1,000 mls @ 0 mls/hr IV EDNOW ONE; Wide Open PRN Reason: Protocol Stop: 07/14/18 03:18 Last Admin: 07/14/18 03:35 Dose: 1,000 mls Ondansetron HCl (Zofran) 4 mg IVP EDNOW ONE Stop: 07/14/18 01:47 Last Admin: 07/14/18 01:47 Dose: 4 mg Departure - Departure Disposition: [facility] Inpatient Acute Clinical Impression: SBO (small bowel obstruction) Abdominal pain Qualifiers: Abdominal location: generalized Qualified Code(s): R10.84 - Generalized abdominal pain Vomiting Qualifiers: Vomiting type: unspecified Vomiting Intractability: non-intractable Nausea presence: with nausea Qualified Code(s): R11.2 - Nausea with vomiting, unspecified Constipation Qualifiers: Constipation type: unspecified constipation type Qualified Code(s): K59.00 - Constipation, unspecified Condition: Good Instructions: Constipation (ED), Bowel Obstruction (ED) Additional Instructions: Please start taking MiraLax 17 g once daily. Please drink plenty of fluids and maintain a bland diet. Return to the ER if your worse in any way. Referrals: NONE *PRIMARY CARE P,. [Primary Care Provider] - As per Instructions
[2018-07-14] MEDS ORDERED: HYDROmorphONE/DILAUDID 1 MG/ML INJ ONE (04:49)
--- NOTE | 2018-07-14 05:21 | GCON ---
REASON FOR CONSULTATION: The patient presents with abdominal distention and a colicky abdominal pain (now improved). HISTORY OF PRESENT ILLNESS: She is a 53-year-old female, who underwent first colonoscopic evaluation last summer and was found to have a sigmoid colon cancer. She underwent a resection and was found to have 2 of 26 nodes positive. She has been treated with pelvic radiation therapy, has had 1 infusion of oxaliplatin. She does take Xeloda. In January, as part of her followup, she had a CT of her abdomen that showed an internal hernia. She was not having symptoms at that time and it was not addressed. She presented to [facility] on May 15 and was admitted because of a bowel obstruction. That resolved without surgery. Note was made at the time, she did have a colon which was quite full of stool, but she also had a dilated proximal small bowel. Followup evaluation on her June CT was not felt to be an issue. On June 26 (in [place]), she did have an episode of nausea and vomiting, in which she went to an ER in [place]. There was no obstruction, but she was found to be full of stool. She has been taking psyllium and prune juice. Transiently, she took Metamucil after that event. Today, she had a dinner of chicken soup and toast at approximately 6:30 p.m. She had the onset of slow onset of diffuse, crampy, abdominal pain at 8:00 p.m. Note, her last stool was at 4:00 p.m. today and she has been moving her bowels regularly. She presented to the emergency room and was evaluated by Dr. Jerica Baumann. They have done a flat and upright that shows again, she has a large amount of stool and very minimal air-fluid levels. Because of her extensive radiation exposure (treatment and CTs), a CT was not repeated. SOCIAL HISTORY: She smoked from ages [age] a fifth to a quarter-pack per day. She does drink 1-1/2 glasses of wine a day. ALLERGIES: She is allergic to Bactrim, as manifested by a rash. CURRENT MEDICATIONS: Include Vyvanse 20 mg daily, Viibryd 20 mg daily, trazodone 75 mg at bedtime, Vivelle Dot 0.1 mg. She uses progesterone 200 mg p.o. at bedtime and Seroquel 25 mg at bedtime. PAST SURGICAL HISTORY: Other surgeries have included a and hemorrhoid surgery. There is no history of rheumatic fever, tuberculosis, hepatitis, or past transfusions. REVIEW OF SYSTEMS: She was recently found to have a left lower lobe lung nodule and is scheduled to undergo a VATS procedure this coming Sunday for resection/diagnosis. She has had depression for 18 years. She has had ADD for 7 years. She has had sleep issue for 17 years. 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 She is known to have a heart murmur. Her last mammogram was in October 2017. Her last Pap smear was several years ago. There are no limitations on her activities. She did have 1 week of steroids in November. PHYSICAL EXAMINATION: She is awake and alert. Her blood pressure is 101/79 and heart rate is 75, temperature is 36.4, respiratory rate is 14, saturation is 100% on room air. GENERAL: She is awake and quite pleasant. Skull is normocephalic and atraumatic. There are no carotid bruits. Thyroid is not enlarged. BACK: Her back is unremarkable. LUNGS: clear to auscultation. CARDIAC: exam shows S1 and S2 are normal. Again, I do not appreciate a murmur. ABDOMEN: nontender with cough. Bowel sounds are present. There are well- healed laparoscopic incisions. To palpation, left upper quadrant is 2/10 on palpation, left mid abdomen is 3, left lower quadrant is 4, epigastrium is 1, periumbilical area is 2, suprapubic area is 3, right upper quadrant is 1, right mid abdomen is 2, right lower quadrant is 2. LABORATORIES: Unremarkable. A TSH is pending. Note is made her calcium is elevated again at 10.4. This was pursued on her last admission and it did drop into the normal range. This patient is a DNR. Nonetheless, further evaluation is planned. Note, thoracoscopic resection of a lung nodule this set up for later this week. IMPRESSION: She is again quite constipated. Enemas will be tried. A TSH will be checked. If she improves, she will be dismissed and will upgrade her psyllium and prune juice to MiraLAX with the suggestion that it should be a regular medication for her. If she is not resolve, she will be admitted. /[id number]/MODL MTDD
[2018-07-14] MEDS ORDERED: ACETAMINOPHEN 325 MG TAB PO PRN (07:35)
[2018-07-14] MEDS: LR 1,000 ML IV SCH ×2 (08:39→18:11)
[2018-07-14] MEDS: ACETAMINOPHEN 650 MG SUPP PR SCH ×2 (08:43→15:19)
--- NOTE | 2018-07-14 09:09 | SOAPPROG ---
SOAP Progress Note Assessment/Plan: 07/14/18 08:59 Assessment: She had a good response to enemas but still feels slightly nauseous. F/u Abd xray shows non obstructive small bowel air (Lung nodule update - although her LLL lung nodle is the bigest, it is a right lower lung nodule that has been growing and is the one walter will be sampled by the VATS) Plan: SBFT to define any obstruction. Subjective: Concerned about leaving as she does not feel the process is resolved. Objective: Vital Signs Temp Pulse Resp BP Pulse Ox 36.7 C 82 16 120/76 94 07/14/18 08:37 07/14/18 08:37 07/14/18 08:37 07/14/18 08:37 07/14/18 08:37 - Time Spent With Patient Time Spent With Patient: 15 Physical Exam - Physical Exam General Appearance: WD/WN, alert Abdomen: non-tender, soft, other (hypoactive BS) ICD10 Worksheet Patient Problems: Problems Problem Status Onset Abdominal pain Acute Constipation Acute SBO (small bowel obstruction) Acute Vomiting Acute
[2018-07-14] MEDS ORDERED: Vilazodone Hcl [Viibryd] 40 MG PO SCH (10:45)
[2018-07-14] MEDS: KETOROLAC 15 MG/1 ML SDV IVP SCH ×2 (12:23→18:13)
[2018-07-14] MEDS: Vilazodone Hcl [Viibryd] 40 MG PO SCH (12:23)
[2018-07-14] MEDS: ONDANSETRON 4 MG/2 ML VIAL IVP PRN ×2 (12:28→19:36)
--- NOTE | 2018-07-14 12:31 | ASMTCMCOM ---
CM Note CM Note Notes: Case Management Chart Review for Discharge Support: Patient is 53 year old female who presented to [facility] ED with abdominal pain, nausea, and vomiting. Past medical history includes small bowel obstruction in May of last year, sigmoid colon cancer post resection and chemotherapy, depression, ADD. at bedside. Patient admitted under observation. CM available to follow. D/C Plan: Independent. Date Signed: 07/14/2018 12:30 PM Electronically Signed By:Carmen Gill
[2018-07-14] MEDS ORDERED: NS 500 ML IV ONE (15:46)
[2018-07-14] MEDS ORDERED: LIDOCAINE 2% JELLY 20 ML (UROJECT) UR ONE (15:52)
[2018-07-14] MEDS: PROMETHAZINE HCL 25 MG/ML INJ IVP PRN (16:28)
[2018-07-14] MEDS: QUEtiapine FUMARATE 50 MG TAB PO SCH (16:31)
[2018-07-14] MEDS: traZODone 50 MG TAB PO SCH (16:32)
[2018-07-14] MEDS: HYDROmorphONE/DILAUDID 1 MG/ML INJ IVP PRN (19:52)
--- NOTE | 2018-07-14 20:56 | PDMN ---
Medical Necessity Medical necessity: MCG M210 intestinal obstruction: 2 days: SBO req NG tube
[2018-07-14] MEDS: PROGESTERONE,MICR 100 MG CAP PO SCH (21:47)
[2018-07-15] MEDS: LR 1,000 ML IV SCH ×3 (00:15→15:44)
[2018-07-15] MEDS: KETOROLAC 15 MG/1 ML SDV IVP SCH ×5 (00:22→23:20)
[2018-07-15] MEDS: ACETAMINOPHEN 650 MG SUPP PR SCH ×5 (00:22→23:31)
[2018-07-15] MEDS: PROMETHAZINE HCL 25 MG/ML INJ IVP PRN ×3 (04:03→14:37)
[2018-07-15 05:32] LABS: PLATELET COUNT 287 10^3/uL (150-400)
--- NOTE | 2018-07-15 08:35 | SOAPPROG ---
SOAP Progress Note Assessment/Plan: Assessment/Plan: 53 Y F c SBO, presumed internal hernia. Hx colectomy for colon CA c node mets. Enlarging lung nodule with surgery set up at outside hospital later this week. Reviewed SBFT and AXR films. Still appears obstructed. Will get new AXR today. Continue NGT decompression and NPO. Continue supportive care with IVF, pain meds and antiemetics PRN. Seen and examined c Dr. Roldan. S: no flatus. O: alert, nad mmm, ng in place ctab anteriorly rrr abd softly bloated, no BS. 07/15/18 08:35 Objective: Vital Signs Temp Pulse Resp BP Pulse Ox 36.8 C 65 16 136/78 H 95 07/15/18 08:00 07/15/18 08:00 07/15/18 08:00 07/15/18 08:00 07/15/18 08:00 Laboratory Results 07/15/18 04:43 07/15/18 04:43 07/14/18 07/15/18 07/16/18 05:59 05:59 05:59 Intake Total 1985 Output Total 2400 1200 Balance -415 -1200 ICD10 Worksheet Patient Problems: Problems Problem Status Onset Abdominal pain Acute Constipation Acute SBO (small bowel obstruction) Acute Vomiting Acute
[2018-07-15] MEDS: Lisdexamfetamine Dimesylate [Vyvanse] 20 MG PO SCH (08:53)
[2018-07-15] MEDS: Vilazodone Hcl [Viibryd] 40 MG PO SCH (08:54)
[2018-07-15] MEDS: VILAZODONE 40 MG PO SCH (11:29)
[2018-07-15] MEDS ORDERED: NS 500 ML IV ONE (16:15)
[2018-07-15] MEDS: HYDROmorphONE/DILAUDID 1 MG/ML INJ IVP PRN (16:28)
[2018-07-15] MEDS ORDERED: cefOXitin SODIUM 2 GM in NS 100 ML IV ONE (16:36)
--- NOTE | 2018-07-15 19:56 | PDANEPAE ---
ANE History of Present Illness 53 yo female with h/o adenocarcinoma of the rectum now with SBO. ANE Past Medical History - Cardiovascular History Hx Hypertension: No Hx Arrhythmias: No Hx Chest Pain: No Hx Coronary Artery / Peripheral Vascular Disease: No Hx CHF / Valvular Disease: No Hx Palpitations: No - Pulmonary History Hx COPD: No Hx Asthma/Reactive Airway Disease: No Hx Recent Upper Respiratory Infection: No Hx Oxygen in Use at Home: No Hx Sleep Apnea: No Sleep Apnea Screening Result - Last Documented: Negative Pulmonary History Comment: pulmonary metastasis - Neurologic History Hx Cerebrovascular Accident: No Hx Seizures: No Hx Dementia: No - Endocrine History Hx Diabetes: No Hypothyroid: No Hyperthyroid: No Obesity: no - Renal History Hx Renal Disorders: No - Liver History Hx Hepatic Disorders: No - Neurological & Psychiatric Hx Hx Neurological and Psychiatric Disorders: Yes Neurological / Psychiatric History Comment: ADD, depression - Cancer History Hx Cancer: Yes Cancer History Comment: COLORECTAL DX 08/2017, s/p resection - Congenital Disorder History Hx Congenital Disorders: No - GI History Hx Gastrointestinal Disorders: No - Other Health History Other Health History: NEG - Chronic Pain History Chronic Pain: No - Surgical History Prior Surgeries: COLONOSCOPY. C SECTION ANE Review of Systems Review of Systems: - Systems Constitutional: Reports: no symptoms Gastrointestinal: Reports: abdominal pain, nausea ANE Patient History - Allergies Allergies/Adverse Reactions: sulfamethoxazole [From Bactrim] Allergy (Verified 07/14/18 07:24) Rash trimethoprim [From Bactrim] Allergy (Verified 07/14/18 07:24) Rash - Home Medications Home Medications: Lisdexamfetamine Dimesylate [Vyvanse] 20 mg PO DAILY 08/27/17 [Last Taken ] traZODone [traZODONE 50MG (*)] 75 mg PO HS 08/27/17 [Last Taken 07/13/18] Estradiol [Vivelle-Dot 0.1MG (*)] 0.1 mg TD TUFR@0800 05/15/18 [Last Taken 07/12] Progesterone, Micronized [Progesterone] 200 mg PO HS 05/15/18 [Last Taken ] QUEtiapine FUMARATE [Seroquel 50 mg (*)] 25 mg PO HS 05/15/18 [Last Taken ] Vilazodone HCl [Viibryd] 40 mg PO DAILY 07/14/18 [Last Taken 07/13/18] - NPO status NPO Since - Liquids (Date): 07/15/18 NPO Since - Liquids (Time): 15:00 NPO Since - Solids (Date): 07/14/18 - Anes Hx Anes Hx: no prior problems - Smoking Hx Smoking Status: Former smoker - Family Anes Hx Family Anes Hx: neg - N/A ANE Labs/Vital Signs - Labs Result Diagrams: 07/15/18 04:43 07/15/18 04:43 - Vital Signs Blood Pressure: 128/66 Heart Rate: 78 Respiratory Rate: 16 O2 Sat (%): 95 Height: 177.8 cm Weight: 58.967 kg ANE Physical Exam - Airway Neck exam: FROM Mallampati Score: Class 2 Mouth exam: normal dental/mouth exam - Pulmonary Pulmonary: clear to auscultation, reduced air movement - Cardiovascular Cardiovascular: regular rate and rhythym - ASA Status ASA Status: III ANE Anesthesia Plan Anesthesia Plan: general endotracheal anesthesia
[2018-07-15] MEDS ORDERED: PROPOFOL/EMULSION 500 MG/50 ML BOTTLE IV ONE (20:36)
[2018-07-15] MEDS ORDERED: LIDOCAINE 2% 5 ML SDV ONE (20:36)
[2018-07-15] MEDS ORDERED: DEXAMETHASONE 4 MG/ML VIAL ONE (20:36)
[2018-07-15] MEDS ORDERED: ROCURONIUM 100 MG/10 ML VIAL ONE (20:36)
[2018-07-15] MEDS ORDERED: HYDROmorphONE/DILAUDID 2 MG/ML INJ ONE (20:36)
[2018-07-15] MEDS ORDERED: LIDOCAINE 0.5% 50 ML SDV ONE (20:40)
[2018-07-15] MEDS ORDERED: BUPIVACAINE 0.5% 30 ML SDV ONE (20:47)
[2018-07-15] MEDS ORDERED: SUGAMMADEX SODIUM 200 MG/2 ML VIAL IVP ONE (21:50)
[2018-07-15] MEDS ORDERED: ONDANSETRON 4 MG/2 ML VIAL ONE (21:51)
[2018-07-15] MEDS ORDERED: NALOXONE HCL 0.4 MG/ML INJ IVP PRN (22:03)
[2018-07-15] MEDS ORDERED: PROMETHAZINE HCL 25 MG/ML INJ IVP PRN (22:03)
[2018-07-15] MEDS ORDERED: HYDROmorphONE/DILAUDID 2 MG/ML INJ IVP PRN (22:03)
[2018-07-15] MEDS ORDERED: LR 500 ML IV PRN (22:03)
[2018-07-15] MEDS ORDERED: DIAZEPAM 5 MG/ML 1 ML SYR IVP PRN (22:03)
[2018-07-15] MEDS ORDERED: ALBUTEROL 3 ML DEYVIAL IH PRN (22:03)
--- NOTE | 2018-07-15 22:18 | POSTANESTH ---
Post Anesthetic Evaluation Cardiovascular Status: Normal, Stable Respiratory Status: Normal, Stable Level of Consciousness/Mental Status: Can Participate in Eval, Moderately Sleepy Pain Control: Adequate, Prn Tx Ordered Nausea/Vomiting Control: Adequate, Prn Tx Ordered Complications Possibly Related to Anesthesia: None Noted
--- NOTE | 2018-07-15 22:20 | POSTOPPROG ---
Post Op Note Date of Operation: 07/15/18 Surgeon: Matias Rodlan Genetic Engineer: FLORIN Anesthesiologist: GARCIA Anesthesia: GET(General Endotracheal) Pre-op Diagnosis: SBO AND INTERNAL HERNIA Post-op Diagnosis: SAME Indication: PERSISTENT SBO AND PAIN Procedure: LAPAROSCOPIC REDUCTION OF INTERNAL HERNIA AND REPAIR AND ADHESIOLYSIS Findings: INTERNAL HERNIA UNDERNEATH THE DESCENDING COLON MESENTERY WITH COMPLETE SMA Inf/Abcess present in the surg proc area at time of surgery?: No Depth: Organ Space EBL: Minimal Complications: NONE Specimen(s): NONE
[2018-07-15] MEDS: PROGESTERONE,MICR 100 MG CAP PO SCH (23:20)
[2018-07-15] MEDS: QUEtiapine FUMARATE 50 MG TAB PO SCH (23:20)
[2018-07-15] MEDS: traZODone 50 MG TAB PO SCH (23:22)
[2018-07-16] MEDS: KETOROLAC 15 MG/1 ML SDV IVP SCH ×4 (05:32→21:15)
[2018-07-16] MEDS: ACETAMINOPHEN 650 MG SUPP PR SCH ×2 (07:45→14:28)
[2018-07-16] MEDS: ESTRADIOL VIVELLE 0.1 MG PATCH TD SCH ×2 (07:49→14:46)
[2018-07-16] MEDS: LR 1,000 ML IV SCH (08:00)
[2018-07-16] MEDS: VILAZODONE 40 MG PO SCH (10:41)
[2018-07-16] MEDS: Lisdexamfetamine Dimesylate [Vyvanse] 20 MG PO SCH (10:41)
--- NOTE | 2018-07-16 14:00 | SOAPPROG ---
SOAP Progress Note Assessment/Plan: Assessment/Plan: 53 Y F c SBO, presumed internal hernia. Hx colectomy for colon CA c node mets. Enlarging lung nodule with surgery set up at outside hospital later this week postponed. Now s/p exlaparoscopy c JARETH and reduction and repair of internal hernia. POD#1. Doing well. NG clamped this am. Remove today. Clears. Ambulate. ADAT. Dispo: pending, but home soon, maybe tomorrow. S: +flatus. O: alert, nad mmm, ng in place ctab anteriorly rrr abd soft, +BS 07/16/18 13:58 Objective: Vital Signs Temp Pulse Resp BP Pulse Ox 36.9 C 86 17 134/72 H 96 07/16/18 11:45 07/16/18 11:45 07/16/18 11:45 07/16/18 11:45 07/16/18 11:45 Laboratory Results 07/15/18 04:43 07/15/18 04:43 07/15/18 07/16/18 07/17/18 05:59 05:59 05:59 Intake Total 1984 4740 Output Total 4153 2760 250 Balance -415 2265 -250 ICD10 Worksheet Patient Problems: Problems Problem Status Onset Abdominal pain Acute Constipation Acute SBO (small bowel obstruction) Acute Vomiting Acute
[2018-07-16] MEDS ORDERED: ACETAMINOPHEN 500 MG TAB PO PRN (16:37)
[2018-07-16] MEDS: PROGESTERONE,MICR 100 MG CAP PO SCH (21:15)
[2018-07-16] MEDS: traZODone 50 MG TAB PO SCH (21:16)
[2018-07-16] MEDS: QUEtiapine FUMARATE 50 MG TAB PO SCH (21:17)
[2018-07-17] MEDS: KETOROLAC 15 MG/1 ML SDV IVP SCH ×2 (04:48→10:09)
[2018-07-17] MEDS: VILAZODONE 40 MG PO SCH (08:35)
[2018-07-17] MEDS: Lisdexamfetamine Dimesylate [Vyvanse] 20 MG PO SCH (08:52)
[2018-07-17 09:12] VITALS: BP 118/76
--- NOTE | 2018-07-17 09:36 | SOAPPROG ---
SOAP Progress Note Assessment/Plan: Assessment/Plan: 53 Y F c SBO, presumed internal hernia. Hx colectomy for colon CA c node mets. Enlarging lung nodule with surgery set up at outside hospital later this week postponed. Now s/p exlaparoscopy c JARETH and reduction and repair of internal hernia. POD#2. Doing well. Tolerating regular diet. Pain controlled. D/c to home. S: +flatus and BM. No n/v. O: alert, nad mmm ctab anteriorly rrr abd soft, +BS, inc cdi 07/17/18 09:36 Objective: Vital Signs Temp Pulse Resp BP Pulse Ox 36.4 C 76 16 118/76 95 07/17/18 08:00 07/17/18 08:00 07/17/18 08:00 07/17/18 08:00 07/17/18 08:00 Laboratory Results 07/15/18 04:43 07/15/18 04:43 07/16/18 07/17/18 07/18/18 05:59 05:59 05:59 Intake Total 0960 750 Output Total 9744 350 Balance 2265 400 ICD10 Worksheet Patient Problems: Problems Problem Status Onset Abdominal pain Acute Constipation Acute SBO (small bowel obstruction) Acute Vomiting Acute
--- NOTE | 2018-07-18 05:32 | GOP ---
DATE OF OPERATION: 07/15/2018 SURGEON: Matias Roldan MD [facility] THERAPIST: ALEXANDER Abbott PREOPERATIVE DIAGNOSIS: Recurrent small bowel obstruction. POSTOPERATIVE DIAGNOSIS: Recurrent small bowel obstruction. PROCEDURE PERFORMED: Laparoscopic repair of internal hernia with adhesiolysis. FINDINGS: The patient was found to have full complete small-bowel obstruction with markedly dilated proximal bowel and totally decompressed distal bowel. The bowel had herniated underneath the sigmoid colon mesentery after a previous low anterior colectomy. It was fixed in that spot. The flow into the distal bowel was automatic once it was released. ESTIMATED BLOOD LOSS: Negligible. DESCRIPTION OF PROCEDURE: The patient was taken to the operating room, where she received satisfactory general endotracheal anesthesia. She was placed in supine position, prepped and draped in usual sterile fashion. Upper abdominal short incision was made in the left upper quadrant and a Veress needle inserted. Pneumoperitoneum was established. Trocar was introduced. Laparoscope introduced. Good visualization was obtained. Two other trocars were placed under direct vision. Tedious dissection then ensued to find the source of the obstruction because the bowel was markedly dilated. Eventually, the site of herniation was discovered. The bowel was reduced from underneath the descending colon and adhesions were then lysed with the Harmonic scalpel until that whole section of the bowel could be freed and brought away from the surgical site. Hemostasis was obtained. The wound was thoroughly irrigated and trocars removed under direct vision. Prior to closure, the defect in the mesentery of the descending colon was closed, suturing it down to the psoas fascia with interrupted 3-0 PDS sutures. Trocar sites were closed with 0 Vicryl for the fascia, 4-0 Vicryl subcuticular stitch for the skin. All layers infiltrated with 0.5% Marcaine. There were no complications. She tolerated the procedure well, taken recovery room in good condition. COMPLICATIONS: No complications. /[id number]/MODL MTDD
== END 2018-07-17 10:25 | disposition home or self-care (01) | DRG 336 ==
LOC: F3E 08:29 → OBSVTOIN 20:46
PROVIDERS: ADMIT Surgery; ATTEND Surgery
DX: K45.0 Other specified abdominal hernia with obstruction, without gangrene (principal); K56.52 Intestinal adhesions [bands] with complete obstruction; F32.9 Major depressive disorder, single episode, unspecified; F98.8 Other specified behavioral and emotional disorders with onset usually occurring in childhood and adolescence; H93.12 Tinnitus, left ear; R01.1 Cardiac murmur, unspecified; R91.1 Solitary pulmonary nodule; Z85.79 Personal history of other malignant neoplasms of lymphoid, hematopoietic and related tissues; Z85.038 Personal history of other malignant neoplasm of large intestine; Z72.0 Tobacco use; Z66 Do not resuscitate
CPT/HCPCS: 96374; J0694; J1100; J1170; J1885; J2405; J2550; J2704

== ENCOUNTER → 2018-11-28 | Outpatient (CLI) | payer OTHER | LOC: FIMAGING 07:40 ==

== ENCOUNTER → 2018-12-02 | Outpatient (CLI) | payer OTHER | LOC: FIMAGING 09:24 ==

== ENCOUNTER 2018-12-10 07:40 | Day surgery (SDC) | payer OTHER | END 2018-12-10 11:35 | disposition home or self-care (01) | LOC: FIMAGING 07:40 ==